=== PATIENT | female | born 1980 | race Caucasian/White ===

== ENCOUNTER 2017-04-28 13:19 | Inpatient (IN) ==
[2017-04-28 15:28] LABS: Apearance,Urine Slightly Hazy (Clear); Bilirubin,Urine Negative (Negative); Blood, Urine Negative (Negative); Glucose,Urine (UA) Negative (Negative); Ketones,Urine 5 mg/dL (Negative); Mucus,Urine Occasional /LPF (Occasional); Nitrite,Urine Negative (Negative); Protein,Urine 30 MG/DL; RBC,Urine 3 /HPF (0-4); Squamous Epithelial Cell,Urine Occasional /HPF (0-10); Urine Color Yellow (Yellow); Urine Specific Gravity 1.025 (1.001-1.035); Urine Urobilinogen < 2.0 EU/DL (0.2-1.0); WBC,Urine 5 /HPF (0-6)
[2017-04-28 15:59] LABS: Basophils % 0.2 % (0.0-0.8); Eosinophils # 0.1 10*3/uL (0.0-0.87); Eosinophils % 0.9 % (0.00-10.9); Hematocrit 34.9 VOL% (35.7-47.0); Hemoglobin 11.6 GM/DL (12.0-16.0); Immature Granulocytes % 0.3 %; Immature Granulocytes Absolute 0.04 #; Lymphocytes # 2.1 10*3/uL (1.4-4.0); Lymphocytes % 18.2 % (21.3-54.2); Mean Corpuscular HGB Conc 33.2 GM/DL (32-36); Mean Corpuscular Hemoglobin 26 PG (27-34); Mean Corpuscular Volume 76.7 FL (87-102); Mean Platelet Volume 10.9 FL (9.6-12.0); Monocytes # 0.7 10*3/uL (0.11-0.8); Monocytes % 6.2 % (1.7-12.7); Neutrophils # 8.6 10*3/uL (1.4-7.4); Neutrophils % 74.2 % (38.7-73.9); Platelet Count 246 T/CUMM (130-400); Red Blood Count 4.55 MC/CUMM (3.8-5.5); Red Cell Distribution Width 14.9 % (9.3-17.3); White Blood Count 11.6 T/CUMM (4-12)
[2017-04-28 16:13] LABS: INR 0.9; Partial Thromboplastin Time 27.4 SECS (0-40)
[2017-04-28 16:20] LABS: Alanine Aminotransferase 11 U/L (13-56); Albumin 2.4 G/DL (3.4-5.0); Alkaline Phosphatase 150 U/L (45-117); Aspartate Amino Transferase 13 U/L (0-37); Bilirubin,Direct < 0.100 MG/DL (0.0-0.20); Bilirubin,Total < 0.39 MG/DL (0.2-1.0); Blood Urea Nitrogen 8 MG/DL (7-18); Calcium 9.2 MG/DL (8.5-10.1); Glucose 79 MG/DL (74-106); Osmolality,Calculated 275.4 MOS/KG (273-304); Potassium 3.8 MMOL/L (3.5-5.1); Sodium 140 MMOL/L (136-145); Total Protein 6.1 G/DL (6.4-8.3); Uric Acid 4.4 MG/DL (2.6-6.0)
[2017-04-28] MEDS: LACTATED RINGERS 1,000 ML IV SCH (17:45)
[2017-04-28] MEDS ORDERED: LACTATED RINGERS 500 ML IV PRN (17:51)
[2017-04-28] MEDS ORDERED: ONDANSETRON 4 MG/2 ML VIAL IV PRN (17:51)
[2017-04-28] MEDS ORDERED: BUTORPHANOL 1 MG/ML VIAL IV PRN (17:51)
[2017-04-28] MEDS ORDERED: LACTATED RINGERS 250 ML IV ONE (17:51)
[2017-04-28] MEDS ORDERED: BUTORPHANOL 2 MG/ML VIAL IV PRN (17:51)
[2017-04-28] MEDS: METHYLDOPA 250 MG TABLET PO SCH (22:02)
[2017-04-29] MEDS: LACTATED RINGERS 1,000 ML IV SCH ×2 (05:26→08:48)
[2017-04-29] MEDS ORDERED: OXYTOCIN/LR 20 UNIT/1,000 ML BAG IV SCH (06:00)
[2017-04-29] MEDS ORDERED: hydrALAZINE 20 MG/1 ML VIAL IV ONE (07:25)
[2017-04-29] MEDS ORDERED: CLINDAMYCIN INJ 900 MG in PREMIX 1 EACH IV SCH (08:00)
[2017-04-29] MEDS: METHYLDOPA 250 MG TABLET PO SCH ×2 (08:27→20:42)
[2017-04-29] MEDS ORDERED: FAMOTIDINE 20 MG/2 ML VIAL IV ONE (09:00)
[2017-04-29] MEDS ORDERED: ePHEDrine 50 MG/ML AMP IV PRN (09:00)
[2017-04-29] MEDS ORDERED: fentaNYL 2 MCG/ROPIV 0.2% EPID 150 ML EPIDURAL SCH (09:00)
[2017-04-29] MEDS ORDERED: CITRIC ACID/SODIUM CITRATE 30 ML UDCUP PO ONE (09:00)
[2017-04-29] MEDS ORDERED: LACTATED RINGERS 1,000 ML IV ONE (09:00)
[2017-04-29] MEDS ORDERED: hydrOXYzine HCL 25 MG/1 ML VIAL IM PRN (09:00)
[2017-04-29] MEDS ORDERED: diphenhydrAMINE 50 MG/1 ML VIAL IV PRN ×2 (09:00)
[2017-04-29] MEDS ORDERED: PROMETHAZINE 25 MG/1 ML VIAL IM ONE (09:00)
[2017-04-29] MEDS ORDERED: ACETAMINOPHEN 325 MG TABLET PO ONE (14:31)
[2017-04-29] MEDS ORDERED: OXYTOCIN 10 UNIT/ML VIAL IM ONE (17:00)
[2017-04-29] MEDS ORDERED: OXYTOCIN/LR 30 UNIT/1,000 ML BAG IV ONE (17:00)
[2017-04-29] MEDS ORDERED: CLINDAMYCIN INJ 900 MG in PREMIX 1 EACH IV ONE (17:00)
[2017-04-29 18:16] LABS: Apearance,Urine CLEAR (Clear); Bilirubin,Urine Negative (Negative); Blood, Urine Negative (Negative); Glucose,Urine (UA) Negative (Negative); Ketones,Urine 5 mg/dL (Negative); Mucus,Urine Occasional /LPF (Occasional); Nitrite,Urine Negative (Negative); Protein,Urine 30 MG/DL; RBC,Urine 1 /HPF (0-4); Squamous Epithelial Cell,Urine Occasional /HPF (0-10); Urine Color Yellow (Yellow); Urine Specific Gravity 1.014 (1.001-1.035); Urine Urobilinogen < 2.0 EU/DL (0.2-1.0); WBC,Urine 4 /HPF (0-6)
[2017-04-29 18:23] LABS: Cord Venous Blood HCO3 21.3 MMOL/L; Cord Venous Blood PCO2 49.6 MMHG
[2017-04-29 18:26] LABS: Cord Arterial Blood HCO3 20.1 MMOL/L
[2017-04-29] MEDS ORDERED: fentaNYL 100 MCG/2 ML VIAL ONE (18:28)
[2017-04-29] MEDS ORDERED: MIDAZOLAM 2 MG/2 ML VIAL ONE (18:28)
[2017-04-29] MEDS ORDERED: SUCCINYLCHOLINE 200 MG/10 ML VIAL ONE (18:29)
[2017-04-29] MEDS ORDERED: MORPHINE 10 MG/10 ML VIAL ONE (18:29)
[2017-04-29] MEDS ORDERED: ETOMIDATE 20 MG/10 ML VIAL IV ONE (18:29)
[2017-04-29] MEDS ORDERED: SEVOFLURANE 1 UNIT/15 MINUTE INH ONE (18:47)
[2017-04-29] MEDS ORDERED: HYDROmorphone 2 MG/1 ML VIAL IV SCH (20:30)
[2017-04-29] MEDS ORDERED: LACTATED RINGERS 1,000 ML IV SCH (21:33)
[2017-04-29] MEDS ORDERED: ACETAMINOPHEN 325 MG TABLET PO PRN (21:33)
[2017-04-29] MEDS ORDERED: OXYTOCIN/LR 20 UNIT/1,000 ML BAG IV ONE (21:33)
[2017-04-29] MEDS ORDERED: ONDANSETRON 4 MG/2 ML VIAL IV PRN (21:33)
[2017-04-29] MEDS ORDERED: RHO(D) IMMUNE GLOBULIN 300 MCG SYRINGE IM ONE (21:33)
[2017-04-29] MEDS: DOCUSATE SODIUM 100 MG CAPSULE PO SCH (21:47)
[2017-04-30] MEDS: CLINDAMYCIN INJ 900 MG in PREMIX 1 EACH IV SCH ×2 (01:33→08:42)
[2017-04-30 08:02] LABS: Basophils % 0.3 % (0.0-0.8); Eosinophils % 0.3 % (0.00-10.9); Hematocrit 30.2 VOL% (35.7-47.0); Immature Granulocytes % 0.3 %; Immature Granulocytes Absolute 0.04 #; Lymphocytes # 1.7 10*3/uL (1.4-4.0); Lymphocytes % 13.9 % (21.3-54.2); Mean Corpuscular HGB Conc 33.1 GM/DL (32-36); Mean Corpuscular Hemoglobin 25 PG (27-34); Mean Corpuscular Volume 76.6 FL (87-102); Mean Platelet Volume 10.8 FL (9.6-12.0); Monocytes # 0.9 10*3/uL (0.11-0.8); Monocytes % 7.2 % (1.7-12.7); Neutrophils # 9.5 10*3/uL (1.4-7.4); Platelet Count 224 T/CUMM (130-400); Red Blood Count 3.94 MC/CUMM (3.8-5.5); Red Cell Distribution Width 15.1 % (9.3-17.3); White Blood Count 12.1 T/CUMM (4-12)
[2017-04-30] MEDS: DOCUSATE SODIUM 100 MG CAPSULE PO SCH ×2 (08:42→20:12)
[2017-04-30] MEDS: MULTIVITAMIN (PRENATAL) TABLET PO SCH (08:42)
[2017-04-30] MEDS: FUROSEMIDE 40 MG/4 ML VIAL IV SCH ×2 (09:45→17:51)
[2017-04-30] MEDS: SERTRALINE 50 MG TABLET PO SCH (09:45)
[2017-04-30] MEDS: METHYLDOPA 500 MG TABLET PO SCH ×2 (10:05→20:12)
[2017-04-30] MEDS ORDERED: METHYLDOPA 250 MG TABLET ONE (10:05)
[2017-04-30] MEDS ORDERED: ALUMINUM/MAGNES/SIMETH MAX STR 30 ML UDCUP PO PRN (10:56)
[2017-04-30] MEDS: IBUPROFEN 800 MG TABLET PO PRN (20:12)
[2017-05-01] MEDS: FUROSEMIDE 40 MG/4 ML VIAL IV SCH ×2 (02:30→08:50)
[2017-05-01] MEDS: IBUPROFEN 800 MG TABLET PO PRN ×2 (04:18→23:45)
[2017-05-01] MEDS: METHYLDOPA 500 MG TABLET PO SCH ×2 (08:55→20:18)
[2017-05-01] MEDS: DOCUSATE SODIUM 100 MG CAPSULE PO SCH ×2 (08:58→20:19)
[2017-05-01] MEDS: SIMETHICONE CHEW 80 MG TABLET PO PRN (08:58)
[2017-05-01] MEDS: MULTIVITAMIN (PRENATAL) TABLET PO SCH (08:58)
[2017-05-01] MEDS: SERTRALINE 50 MG TABLET PO SCH (08:59)
[2017-05-01] MEDS: MAGNESIUM HYDROXIDE SUSP 30 ML UDCUP PO PRN ×2 (09:02→20:19)
[2017-05-01] MEDS: FUROSEMIDE 40 MG TABLET PO SCH (20:19)
[2017-05-02] MEDS: DOCUSATE SODIUM 100 MG CAPSULE PO SCH (08:38)
[2017-05-02] MEDS: FUROSEMIDE 40 MG TABLET PO SCH (08:38)
[2017-05-02] MEDS: MAGNESIUM HYDROXIDE SUSP 30 ML UDCUP PO PRN (08:41)
[2017-05-02] MEDS: MULTIVITAMIN (PRENATAL) TABLET PO SCH (08:42)
[2017-05-02] MEDS: METHYLDOPA 500 MG TABLET PO SCH (08:42)
[2017-05-02] MEDS: SIMETHICONE CHEW 80 MG TABLET PO PRN (08:42)
[2017-05-02] MEDS: SERTRALINE 50 MG TABLET PO SCH (08:42)
[2017-05-02 09:56] VITALS: BP 132/80
[2017-05-02] MEDS ORDERED: DIPH/TET/ACEL PERT BOOSTER VACCINE 0.5 ML VIAL IM ONE (10:15)
[2017-05-02] MEDS ORDERED: INFLUENZA VIRUS VACCINE 0.5 ML SYRINGE IM ONE (10:15)
== END 2017-05-02 12:50 | disposition home or self-care (01) | DRG 766 ==
LOC: N.LDOUT 13:19 → N.LD 13:20 → N.OB 04-29 21:15
PROVIDERS: ADMIT Obstetrics & Gynecology; ATTEND Obstetrics & Gynecology
PROC: LDCSECT (ICD-10-PCS; 2017-04-29 17:00)

== ENCOUNTER 2019-06-28 05:59 | Inpatient (IN) ==
[2019-06-28] MEDS ORDERED: FAMOTIDINE 20 MG/2 ML VIAL IV ONE (06:08)
[2019-06-28] MEDS ORDERED: CITRIC ACID/SODIUM CITRATE 30 ML UDCUP PO ONE (06:08)
[2019-06-28] MEDS ORDERED: CLINDAMYCIN INJ 900 MG in PREMIX 1 EACH IV ONE (06:18)
[2019-06-28 06:35] LABS: Basophils % 0.4 % (0.0-0.8); Eosinophils # 0.1 10*3/uL (0.0-0.87); Hematocrit 34.4 VOL% (35.7-47.0); Hemoglobin 10.8 GM/DL (12.0-16.0); Immature Granulocytes % 0.2 %; Immature Granulocytes Absolute 0.02 #; Lymphocytes # 2.1 10*3/uL (1.4-4.0); Lymphocytes % 25.3 % (21.3-54.2); Mean Corpuscular HGB Conc 31.4 GM/DL (32-36); Mean Corpuscular Volume 74.5 FL (87-102); Mean Platelet Volume 10.6 FL (9.6-12.0); Monocytes % 8.9 % (1.7-12.7); Neutrophils % 64.2 % (38.7-73.9); Platelet Count 244 T/CUMM (130-400); Red Blood Count 4.62 MC/CUMM (3.8-5.5); Red Cell Distribution Width 17.4 % (9.3-17.3); White Blood Count 8.2 T/CUMM (4-12)
[2019-06-28] MEDS: LACTATED RINGERS 1,000 ML IV SCH ×2 (06:35→08:13)
[2019-06-28] MEDS ORDERED: INFLUENZA VIRUS VACCINE 0.5 ML SYRINGE IM ONE (06:35)
[2019-06-28] MEDS ORDERED: ONDANSETRON 4 MG/2 ML VIAL IV PRN ×2 (06:55→10:20)
[2019-06-28] MEDS ORDERED: ONDANSETRON 4 MG/2 ML VIAL ONE (07:09)
[2019-06-28] MEDS ORDERED: OXYTOCIN 10 UNIT/ML VIAL IM ONE (07:55)
[2019-06-28] MEDS ORDERED: OXYTOCIN/LR 30 UNIT/1,000 ML BAG IV ONE (07:55)
[2019-06-28] MEDS ORDERED: PHENYLEPHRINE 1 MG/10 ML SYRINGE IV ONE (08:34)
[2019-06-28] MEDS ORDERED: MORPHINE 10 MG/10 ML VIAL ONE (08:34)
[2019-06-28] MEDS ORDERED: fentaNYL 100 MCG/2 ML VIAL ONE (08:34)
[2019-06-28] MEDS ORDERED: DEXAMETHASONE 4 MG/1 ML VIAL ONE (08:35)
[2019-06-28] MEDS ORDERED: EPINEPHrine 1 MG/ML VIAL ONE (08:35)
[2019-06-28] MEDS ORDERED: BUPIVACAINE SPINAL 0.75% 2 ML AMP SPINAL ONE (08:35)
[2019-06-28] MEDS ORDERED: KETOROLAC 60 MG/2 ML VIAL IM ONE (08:35)
[2019-06-28] MEDS ORDERED: BUPIVACAINE 0.5% 50 ML VIAL ONE (08:35)
[2019-06-28 09:56] LABS: Cord Arterial Blood HCO3 20.2 MMOL/L
[2019-06-28 09:57] LABS: Cord Venous Blood HCO3 21.9 MMOL/L; Cord Venous Blood PCO2 41.6 MMHG
[2019-06-28] MEDS ORDERED: diphenhydrAMINE 50 MG/1 ML VIAL IV PRN ×2 (10:09→21:48)
[2019-06-28] MEDS ORDERED: hydrOXYzine HCL 25 MG/1 ML VIAL IM PRN (10:09)
[2019-06-28] MEDS ORDERED: HYDROmorphone 2 MG/1 ML VIAL IV PRN (10:09)
[2019-06-28 10:11] LABS: Amorphous Crystals,Urine Occasional /HPF (Few); Apearance,Urine CLEAR (Clear); Bacteria,Urine Occasional /HPF (Few); Bilirubin,Urine Negative (Negative); Blood, Urine Negative (Negative); Glucose,Urine (UA) Negative (Negative); Ketones,Urine Negative (Negative); Mucus,Urine Occasional /LPF (Occasional); Nitrite,Urine Negative (Negative); Protein,Urine 30 MG/DL; RBC,Urine 1 /HPF (0-4); Squamous Epithelial Cell,Urine Occasional /HPF (0-10); Urine Color Yellow (Yellow); Urine Specific Gravity 1.026 (1.001-1.035); Urine Urobilinogen < 2.0 EU/DL (0.2-1.0); WBC,Urine <1 /HPF (0-6)
[2019-06-28] MEDS ORDERED: BUTALBITAL/ACETAMIN/CAFFEINE 50-325-40 MG TABLET PO PRN (10:12)
[2019-06-28] MEDS ORDERED: BISACODYL 10 MG SUPP RECTAL PRN (10:20)
[2019-06-28] MEDS ORDERED: RHO(D) IMMUNE GLOBULIN 300 MCG SYRINGE IM ONE (10:20)
[2019-06-28] MEDS ORDERED: BENZOCAINE 20%/MENTHOL 0.5% SPRAY 56 GM CAN TOP PRN (10:20)
[2019-06-28] MEDS ORDERED: OXYTOCIN/LR 20 UNIT/1,000 ML BAG IV ONE (10:20)
[2019-06-28] MEDS ORDERED: oxyCODONE/ACETAMINOPHEN 5-325 MG TABLET PO PRN (10:20)
[2019-06-28] MEDS ORDERED: WITCH HAZEL PADS 100/JAR TOP PRN (10:20)
[2019-06-28] MEDS ORDERED: LANOLIN 50% CREAM 0.3 OZ TUBE TOP PRN (10:20)
[2019-06-28] MEDS ORDERED: ACETAMINOPHEN 325 MG TABLET PO PRN (10:20)
[2019-06-28] MEDS ORDERED: DIPH/TET/ACEL PERT BOOSTER VACCINE 0.5 ML VIAL IM ONE (10:20)
[2019-06-28] MEDS ORDERED: HYDROCORTISONE 2.5% RECTAL CREAM 30 GM TUBE TOP PRN (10:20)
[2019-06-28] MEDS ORDERED: MEASLES/MUMPS/RUBELLA VACCINE 0.5 ML VIAL SUBCUT ONE (10:20)
[2019-06-28] MEDS ORDERED: KETOROLAC 30 MG/1 ML VIAL IV SCH (16:00)
[2019-06-28] MEDS ORDERED: KETOROLAC 30 MG/1 ML VIAL IV PRN (16:16)
[2019-06-28] MEDS: CLINDAMYCIN INJ 900 MG in PREMIX 1 EACH IV SCH (18:50)
[2019-06-28] MEDS: DOCUSATE SODIUM 100 MG CAPSULE PO SCH (21:46)
[2019-06-28] MEDS ORDERED: LACTATED RINGERS 1,000 ML IV SCH (22:00)
[2019-06-28] MEDS: oxyCODONE/ACETAMINOPHEN 5-325 MG TABLET PO PRN (22:01)
[2019-06-29] MEDS: CLINDAMYCIN INJ 900 MG in PREMIX 1 EACH IV SCH (02:06)
[2019-06-29 05:57] LABS: Basophils % 0.4 % (0.0-0.8); Eosinophils # 0.1 10*3/uL (0.0-0.87); Eosinophils % 1.3 % (0.00-10.9); Hematocrit 29.8 VOL% (35.7-47.0); Hemoglobin 9.2 GM/DL (12.0-16.0); Immature Granulocytes % 0.4 %; Immature Granulocytes Absolute 0.03 #; Lymphocytes # 1.9 10*3/uL (1.4-4.0); Lymphocytes % 24.5 % (21.3-54.2); Mean Corpuscular HGB Conc 30.9 GM/DL (32-36); Mean Corpuscular Volume 74.9 FL (87-102); Mean Platelet Volume 11.3 FL (9.6-12.0); Monocytes % 8.7 % (1.7-12.7); Neutrophils % 64.7 % (38.7-73.9); Platelet Count 186 T/CUMM (130-400); Red Blood Count 3.98 MC/CUMM (3.8-5.5); Red Cell Distribution Width 17.1 % (9.3-17.3); White Blood Count 7.6 T/CUMM (4-12)
[2019-06-29] MEDS: oxyCODONE/ACETAMINOPHEN 5-325 MG TABLET PO PRN ×3 (07:09→18:25)
[2019-06-29] MEDS: DOCUSATE SODIUM 100 MG CAPSULE PO SCH ×2 (10:30→20:57)
[2019-06-29] MEDS: PANTOPRAZOLE 40 MG TABLET PO SCH (12:46)
[2019-06-29] MEDS: SERTRALINE 50 MG TABLET PO SCH (12:46)
[2019-06-29] MEDS ORDERED: METOCLOPRAMIDE 10 MG TABLET PO SCH (18:00)
[2019-06-29] MEDS: IBUPROFEN 800 MG TABLET PO PRN (18:26)
[2019-06-29] MEDS: METOCLOPRAMIDE 10 MG TABLET PO SCH (23:35)
[2019-06-30] MEDS: IBUPROFEN 800 MG TABLET PO PRN (06:10)
[2019-06-30] MEDS: METOCLOPRAMIDE 10 MG TABLET PO SCH (06:10)
[2019-06-30 07:20] VITALS: BP 118/56
[2019-06-30] MEDS: DOCUSATE SODIUM 100 MG CAPSULE PO SCH (10:11)
[2019-06-30] MEDS: PANTOPRAZOLE 40 MG TABLET PO SCH (10:12)
[2019-06-30] MEDS: SERTRALINE 50 MG TABLET PO SCH (10:12)
== END 2019-06-30 13:00 | disposition home or self-care (01) | DRG 785 ==
LOC: N.LDOUT 05:59 → N.LD 06:04 → N.OB 13:57
PROVIDERS: ADMIT Pediatrics Neonatal-Perinatal Medicine; ATTEND Obstetrics & Gynecology